=== PATIENT | female | born 1985 | race Caucasian/White ===

== ENCOUNTER 2017-12-20 06:27 | Emergency (ER) | payer OTHER ==
[~2017-12-20] VITALS: Ht 177.8 cm; Wt 99.8 kg
[~2017-12-20 06:27] MED LIST: FERR325T58 PO; METF500T16 PO; NAPR-514 PO; NAPR220C4 PO; OXYC-327 PO; PHEN37.5 PO; SERT100T PO; SERT50TA PO; TOPI50TA8 PO; thorazine PO
[2017-12-20] MEDS ORDERED: METOCLOPRAMIDE HCL 10 MG/2 ML VIAL. IV ONE (07:00)
[2017-12-20] MEDS ORDERED: diphenhydrAMINE 50 MG/ML VIAL IVP ONE (07:00)
--- NOTE | 2017-12-20 07:01 | PHYS DOC ---
Past Medical History Past Medical History: Hypertension, Migraines Past Surgical History: Hysterectomy Additional Past Surgical Histo: HEMROIDECTOMY Alcohol Use: Occasionally Drug Use: None Adult General Chief Complaint Chief Complaint: HEADACHE HPI HPI Patient is a 32 year old female who presented to ER today for evaluation of headache syndrome this morning. Patient has history of migraine headache, she descried the headache is throbbing, associated with blurry vision, associated with photophobia, loud noise makes her headache worse. She has history of hypertension in the past but she had not been taking medication for about 10 years. Patient denies any chest pain, no abdominal pain, no nausea vomiting. She has history of hysterectomy. Review of Systems Review of Systems Constitutional: Denies fever or chills [] Eyes: Denies change in visual acuity, redness, PHOTOPHOPIA , BLURRY VISION[] HENT: Denies nasal congestion or sore throat [] Respiratory: Denies cough or shortness of breath [] Cardiovascular: No additional information not addressed in HPI [] GI: Denies abdominal pain, nausea, vomiting, bloody stools or diarrhea [] : Denies dysuria or hematuria [] Musculoskeletal: Denies back pain or joint pain [] Integument: Denies rash or skin lesions [] Neurologic: Positive for headache, NO focal weakness or sensory changes [] Endocrine: Denies polyuria or polydipsia [] All other systems were reviewed and found to be within normal limits, except as documented in this note. Current Medications Current Medications Current Medications Medications (Trade) Dose Ordered Sig/Bren Start Time Stop Time Status Last Admin Dose Admin Diphenhydramine HCl (Benadryl) 50 mg 1X ONCE 12/20/17 07:00 12/20/17 07:01 DC 12/20/17 07:27 50 MG Ketorolac Tromethamine (Toradol 30mg Vial) 30 mg 1X ONCE 12/20/17 08:15 12/20/17 08:16 DC 12/20/17 08:16 30 MG Metoclopramide HCl (Reglan Vial) 10 mg 1X ONCE 12/20/17 07:00 12/20/17 07:01 DC 12/20/17 07:25 10 MG Allergies Allergies Allergies Coded Allergies Type Severity Reaction Last Updated Verified No Known Drug Allergies 03/21/15 No Physical Exam Physical Exam Constitutional: Well developed, well nourished, no acute distress, non-toxic appearance. [] HENT: Normocephalic, atraumatic, bilateral external ears normal, oropharynx moist, no oral exudates, nose normal. [] Eyes: PERRLA, EOMI, conjunctiva normal, no discharge. [] Neck: Normal range of motion, no tenderness, supple, no stridor. [] Cardiovascular:Heart rate regular rhythm, no murmur [] Lungs & Thorax: Bilateral breath sounds clear to auscultation [] Abdomen: Bowel sounds normal, soft, no tenderness, no masses, no pulsatile masses. [] Skin: Warm, dry, no erythema, no rash. [] Back: No tenderness, no CVA tenderness. [] Extremities: No tenderness, no cyanosis, no clubbing, ROM intact, no edema. [] Neurologic: Alert and oriented X 3, normal motor function, normal sensory function, no focal deficits noted. [] Psychologic: Affect normal, judgement normal, mood normal. [] Current Patient Data Vital Signs Vital Signs Date Time Temp Pulse Resp B/P (MAP) Pulse Ox O2 Delivery O2 Flow Rate FiO2 12/20/17 08:00 90 18 99 12/20/17 06:35 98.4 203/76 (118) Room Air 98.4 EKG EKG [] Radiology/Procedures Radiology/Procedures [][facility] [address], [place] [id number] IMAGING REPORT Signed PATIENT: DELANEY RHOADES ACCOUNT: [id number] : 1985 LOCATION: ER AGE: 32 SEX: F EXAM STATUS: REG ER ORD. PHYSICIAN: NED WILD DO REASON: headache, blurry vision, HTN PROCEDURE: CT HEAD WO CONTRAST EXAM: CT Head without IV contrast CLINICAL HISTORY: SEVERE HEADACHE AND DIZZINESS, NO PRIORS COMPARISON: None. TECHNIQUE: Routine CT of the head without contrast. Soft tissues and bone windows were reviewed. PQRS compliance statement - One or more of the following individualized dose reduction techniques were utilized for this study: 1. Automated exposure control 2. Adjustment of the mA and/or kV according to patient size 3. Use of iterative reconstruction technique FINDINGS: There is no evidence of hemorrhage, mass or extra-axial fluid collection. Bailon-white differentiation is maintained with no evidence of edema. There is no mass effect or shift of the intracranial structures. The ventricles, basilar cisterns and cortical sulci are normal in size and configuration for the patients stated age. The cerebellum and brainstem are unremarkable. The calvarium demonstrates no evidence of fracture or focal lesion. There is normal aeration of the visualized paranasal sinuses and mastoid air cells. The visualized portions of the orbits are normal. IMPRESSION: 1. No evidence for acute intracranial process. Electronically signed by: Israel Rosen MD (12/20/2017 7:51 AM) [facility] DICTATED and SIGNED BY: ISRAEL ROSEN MD DATE: 12/20/17 0747 Impressions: headache Course & Med Decision Making Course & Med Decision Making Pertinent Labs and Imaging studies reviewed. (See chart for details) She felt much better, her blood pressure improved to 123/80. We'll discharge her home. Dragon Disclaimer Dragon Disclaimer This electronic medical record was generated, in whole or in part, using a voice recognition dictation system. Departure Departure Impression: Primary Impression: Headache Disposition: 01 HOME, SELF-CARE Condition: STABLE Referrals: NO PCP (PCP) follow up with family doctor in 2 days for reevaluation. Patient Instructions: General Headache Without Cause NED WILD DO Dec 20, 2017 07:01
--- NOTE | 2017-12-20 07:55 | RAD ---
EXAM: CT Head without IV contrast CLINICAL HISTORY: SEVERE HEADACHE AND DIZZINESS, NO PRIORS COMPARISON: None. TECHNIQUE: Routine CT of the head without contrast. Soft tissues and bone windows were reviewed. PQRS compliance statement - One or more of the following individualized dose reduction techniques were utilized for this study: 1. Automated exposure control 2. Adjustment of the mA and/or kV according to patient size 3. Use of iterative reconstruction technique FINDINGS: There is no evidence of hemorrhage, mass or extra-axial fluid collection. Bailon-white differentiation is maintained with no evidence of edema. There is no mass effect or shift of the intracranial structures. The ventricles, basilar cisterns and cortical sulci are normal in size and configuration for the patients stated age. The cerebellum and brainstem are unremarkable. The calvarium demonstrates no evidence of fracture or focal lesion. There is normal aeration of the visualized paranasal sinuses and mastoid air cells. The visualized portions of the orbits are normal. IMPRESSION: 1. No evidence for acute intracranial process. Electronically signed by: Israel Shafer MD (12/20/2017 7:51 AM) [facility]
[2017-12-20 08:00] VITALS: BP 123/82
[2017-12-20] MEDS ORDERED: KETOROLAC 30 MG/ML VIAL. IV ONE (08:15)
== END 2017-12-20 08:40 | disposition home or self-care (01) ==
LOC: ER 06:27
DX: R51 Headache (principal); G43.909 Migraine, unspecified, not intractable, without status migrainosus; I10 Essential (primary) hypertension
CPT/HCPCS: 70450; 96374; 96375; 99284; J1200; J1885; J2765

== ENCOUNTER → 2018-02-09 | Outpatient (CLI) | payer OTHER ==
--- NOTE | 2018-02-09 17:05 | KCIC ---
Pelvic ultrasound Clinical Indication: Polycystic ovary syndrome.. . Findings: Patient has had a hysterectomy. No sonographic abnormality identified in the region of the vaginal cuff. Right ovary measures 2.7 cm with positive blood flow and no focal lesion. Left ovary measures 4.2 cm with positive blood flow and no focal lesion. No significant free fluid. IMPRESSION: Ovaries appear within normal limits. Electronically signed by: Van Buckley MD (02/09/2018 5:01 PM) [id number]
== END | disposition home or self-care (01) ==
LOC: KCIC US 14:04
PROVIDERS: ATTEND Physician Assistant Surgical
DX: E28.2 Polycystic ovarian syndrome (principal)
CPT/HCPCS: 76856